=== PATIENT | male | born 1940 | race Caucasian/White ===

== ENCOUNTER 2021-08-07 06:43 | Emergency (ER) | payer OTHER ==
[2021-08-07 07:43] LABS: HEMOGLOBIN 12.8 gm/dl (14.0-17.5); RED BLOOD COUNT 4.49 M/UL (4.20-5.50); WHITE BLOOD COUNT 6.4 K/UL (4.5-11.0)
[2021-08-07 08:08] LABS: BUN/CREATININE RATIO 12 (0-10)
[2021-08-07] MEDS ORDERED: COLACE 100MG C100 MG PO (13:20)
== END 2021-08-07 13:59 | disposition home or self-care (01) ==
LOC: ER1 06:43
PROVIDERS: Physician Assistant
DX: K56.41 Fecal impaction (principal); N28.1 Cyst of kidney, acquired; R91.1 Solitary pulmonary nodule; R31.9 Hematuria, unspecified; I10 Essential (primary) hypertension; Z86.73 Personal history of transient ischemic attack (TIA), and cerebral infarction without residual deficits; Z88.6 Allergy status to analgesic agent
CPT/HCPCS: 80053; 81001; 82550; 82553; 83605; 83690; 83874; 84484; 85025; 93005; 96374; 99284; J2405; J7030; Q9967

== ENCOUNTER 2022-02-13 07:05 | Emergency (ER) | payer OTHER ==
[~2022-02-13 07:05] MED LIST: COLACE 100MG C100 MG PO
[2022-02-13 07:48] LABS: HEMOGLOBIN 13.8 gm/dl (14.0-17.5); RED BLOOD COUNT 4.33 M/UL (4.20-5.50); WHITE BLOOD COUNT 6.3 K/UL (4.5-11.0)
[2022-02-13 08:21] LABS: BUN/CREATININE RATIO 26 (0-10)
[2022-02-13] MEDS ORDERED: PROVENTIL HFA6.7 GM INH (10:26)
[2022-02-13] MEDS ORDERED: PREDNISONE 20 M20 MG PO (10:26)
== END 2022-02-13 10:58 | disposition home or self-care (01) ==
LOC: ER1 07:05
PROVIDERS: Emergency Medicine
DX: J40 Bronchitis, not specified as acute or chronic (principal); B34.9 Viral infection, unspecified; I48.91 Unspecified atrial fibrillation; I10 Essential (primary) hypertension
CPT/HCPCS: 71045; 80053; 82550; 82553; 83690; 84484; 85025; 93005; 96374; 99285; J2930

== ENCOUNTER 2022-02-19 04:46 | Inpatient (IN) | payer OTHER ==
[~2022-02-19] VITALS: Ht 177.8 cm; Wt 96.7 kg
[~2022-02-19 04:46] MED LIST changes: +PREDNISONE 20 M20 MG PO; +PROVENTIL HFA6.7 GM INH
[2022-02-19 05:44] LABS: HEMOGLOBIN 14.7 gm/dl (14.0-17.5); RED BLOOD COUNT 4.5 M/UL (4.20-5.50); WHITE BLOOD COUNT 18.3 K/UL (4.5-11.0)
[2022-02-19 06:12] LABS: BUN/CREATININE RATIO 34 (0-10)
[2022-02-19] MEDS ORDERED: KLONOPIN0.5 MG PO (17:15)
[2022-02-19] MEDS ORDERED: PROZAC20 MG PO (17:16)
[2022-02-19] MEDS ORDERED: FUROSEMIDE20 MG PO (17:16)
[2022-02-19] MEDS ORDERED: PROVENTIL HFA6.7 GM INH (17:16)
[2022-02-19] MEDS ORDERED: LOSARTAN POTAS100 MG PO (17:17)
[2022-02-19] MEDS ORDERED: AMIODARONE HCL200 MG PO (17:18)
[2022-02-19] MEDS ORDERED: TRIAMTERENE-HC1 EAC1 PO (17:18)
[2022-02-19] MEDS ORDERED: METOPROLOL TART25 MG PO (17:19)
[2022-02-19] MEDS ORDERED: COLACE 100MG C100 MG PO (19:44)
[2022-02-19] MEDS ORDERED: ASPIRIN EC325 MG PO (19:47)
[2022-02-20 02:34] LABS: HEMOGLOBIN 13.5 gm/dl (14.0-17.5); RED BLOOD COUNT 4.1 M/UL (4.20-5.50)
[2022-02-20 03:12] LABS: BUN/CREATININE RATIO 46 (0-10)
[2022-02-20 03:14] LABS: WHITE BLOOD COUNT 11.7 K/UL (4.5-11.0)
[2022-02-21 03:33] LABS: HEMOGLOBIN 13.2 gm/dl (14.0-17.5); RED BLOOD COUNT 4.08 M/UL (4.20-5.50); WHITE BLOOD COUNT 14.4 K/UL (4.5-11.0)
[2022-02-21 04:01] LABS: BUN/CREATININE RATIO 57 (0-10)
[2022-02-22 02:41] LABS: HEMOGLOBIN 13.6 gm/dl (14.0-17.5); RED BLOOD COUNT 4.19 M/UL (4.20-5.50); WHITE BLOOD COUNT 15.3 K/UL (4.5-11.0)
[2022-02-22 02:59] LABS: BUN/CREATININE RATIO 53 (0-10)
[2022-02-23 01:38] LABS: HEMOGLOBIN 13.3 gm/dl (14.0-17.5); RED BLOOD COUNT 4.14 M/UL (4.20-5.50); WHITE BLOOD COUNT 15.5 K/UL (4.5-11.0)
[2022-02-23 01:57] LABS: BUN/CREATININE RATIO 56 (0-10)
[2022-02-24 03:52] LABS: HEMOGLOBIN 14.1 gm/dl (14.0-17.5); RED BLOOD COUNT 4.37 M/UL (4.20-5.50); WHITE BLOOD COUNT 18.6 K/UL (4.5-11.0)
[2022-02-24 04:10] LABS: BUN/CREATININE RATIO 63 (0-10)
[2022-02-25 03:13] LABS: HEMOGLOBIN 14.2 gm/dl (14.0-17.5); RED BLOOD COUNT 4.39 M/UL (4.20-5.50); WHITE BLOOD COUNT 19.1 K/UL (4.5-11.0)
[2022-02-25 03:40] LABS: BUN/CREATININE RATIO 58 (0-10)
[2022-02-26 02:11] LABS: HEMOGLOBIN 14.6 gm/dl (14.0-17.5); RED BLOOD COUNT 4.46 M/UL (4.20-5.50); WHITE BLOOD COUNT 15.2 K/UL (4.5-11.0)
[2022-02-26 04:14] LABS: BUN/CREATININE RATIO 55 (0-10)
[2022-02-27 11:03] LABS: HEMOGLOBIN 14.9 gm/dl (14.0-17.5); RED BLOOD COUNT 4.58 M/UL (4.20-5.50); WHITE BLOOD COUNT 17.4 K/UL (4.5-11.0)
[2022-02-27 11:39] LABS: BUN/CREATININE RATIO 51 (0-10)
[2022-02-28 02:13] LABS: HEMOGLOBIN 14.4 gm/dl (14.0-17.5); RED BLOOD COUNT 4.44 M/UL (4.20-5.50); WHITE BLOOD COUNT 16.9 K/UL (4.5-11.0)
[2022-02-28 04:13] LABS: BUN/CREATININE RATIO 50 (0-10)
[2022-03-01 02:22] LABS: HEMOGLOBIN 14.2 gm/dl (14.0-17.5); RED BLOOD COUNT 4.41 M/UL (4.20-5.50); WHITE BLOOD COUNT 16.3 K/UL (4.5-11.0)
[2022-03-01 03:21] LABS: BUN/CREATININE RATIO 43 (0-10)
[2022-03-02 01:47] LABS: RED BLOOD COUNT 4.27 M/UL (4.20-5.50); WHITE BLOOD COUNT 12.7 K/UL (4.5-11.0)
[2022-03-02 02:39] LABS: BUN/CREATININE RATIO 50 (0-10)
[2022-03-03 02:55] LABS: BUN/CREATININE RATIO 45 (0-10)
[2022-03-04 02:51] LABS: HEMOGLOBIN 14.5 gm/dl (14.0-17.5); RED BLOOD COUNT 4.51 M/UL (4.20-5.50); WHITE BLOOD COUNT 13.7 K/UL (4.5-11.0)
[2022-03-04 03:27] LABS: BUN/CREATININE RATIO 36 (0-10)
[2022-03-05 04:38] LABS: HEMOGLOBIN 14.1 gm/dl (14.0-17.5); RED BLOOD COUNT 4.37 M/UL (4.20-5.50); WHITE BLOOD COUNT 13.6 K/UL (4.5-11.0)
[2022-03-05 05:09] LABS: BUN/CREATININE RATIO 40 (0-10)
[2022-03-06 02:56] LABS: HEMOGLOBIN 13.2 gm/dl (14.0-17.5); RED BLOOD COUNT 4.11 M/UL (4.20-5.50); WHITE BLOOD COUNT 11.8 K/UL (4.5-11.0)
[2022-03-06 03:40] LABS: BUN/CREATININE RATIO 47 (0-10)
[2022-03-07 02:25] LABS: HEMOGLOBIN 13.2 gm/dl (14.0-17.5); RED BLOOD COUNT 4.1 M/UL (4.20-5.50); WHITE BLOOD COUNT 10.2 K/UL (4.5-11.0)
[2022-03-07 02:35] LABS: BUN/CREATININE RATIO 42 (0-10)
[2022-03-09 02:31] LABS: HEMOGLOBIN 14.4 gm/dl (14.0-17.5); RED BLOOD COUNT 4.45 M/UL (4.20-5.50); WHITE BLOOD COUNT 11.3 K/UL (4.5-11.0)
[2022-03-09 03:05] LABS: BUN/CREATININE RATIO 45 (0-10)
[2022-03-10 03:54] LABS: HEMOGLOBIN 13.6 gm/dl (14.0-17.5); RED BLOOD COUNT 4.23 M/UL (4.20-5.50); WHITE BLOOD COUNT 11.6 K/UL (4.5-11.0)
[2022-03-10 04:14] LABS: BUN/CREATININE RATIO 61 (0-10)
--- NOTE | 2022-03-10 07:56 | NUR ---
PATIENT HAS JEFFERSON CATHETER. CATHETER CARE PROVIDED. INSERTED ON 03/09/2022.
[2022-03-11 04:56] LABS: RED BLOOD COUNT 4.06 M/UL (4.20-5.50); WHITE BLOOD COUNT 9.4 K/UL (4.5-11.0)
[2022-03-11 05:19] LABS: BUN/CREATININE RATIO 59 (0-10)
[2022-03-12 06:42] LABS: HEMOGLOBIN 13.9 gm/dl (14.0-17.5); RED BLOOD COUNT 4.32 M/UL (4.20-5.50); WHITE BLOOD COUNT 7.1 K/UL (4.5-11.0)
[2022-03-12 07:00] LABS: BUN/CREATININE RATIO 73 (0-10)
[2022-03-13 05:09] LABS: HEMOGLOBIN 14.2 gm/dl (14.0-17.5); RED BLOOD COUNT 4.31 M/UL (4.20-5.50)
[2022-03-13 05:14] LABS: WHITE BLOOD COUNT 11.8 K/UL (4.5-11.0)
[2022-03-13 05:38] LABS: BUN/CREATININE RATIO 53 (0-10)
[2022-03-14 05:03] LABS: HEMOGLOBIN 14.1 gm/dl (14.0-17.5); RED BLOOD COUNT 4.38 M/UL (4.20-5.50); WHITE BLOOD COUNT 11.6 K/UL (4.5-11.0)
[2022-03-15 05:26] LABS: HEMOGLOBIN 14.1 gm/dl (14.0-17.5); RED BLOOD COUNT 4.34 M/UL (4.20-5.50); WHITE BLOOD COUNT 12.6 K/UL (4.5-11.0)
[2022-03-15 06:24] LABS: BUN/CREATININE RATIO 68 (0-10)
[2022-03-16 05:35] LABS: BUN/CREATININE RATIO 78 (0-10)
[2022-03-16 05:36] LABS: HEMOGLOBIN 13.9 gm/dl (14.0-17.5); RED BLOOD COUNT 4.28 M/UL (4.20-5.50); WHITE BLOOD COUNT 12.1 K/UL (4.5-11.0)
[2022-03-17 05:36] LABS: HEMOGLOBIN 12.5 gm/dl (14.0-17.5)
[2022-03-17 05:40] LABS: BUN/CREATININE RATIO 84 (0-10)
[2022-03-17 05:54] LABS: RED BLOOD COUNT 3.81 M/UL (4.20-5.50)
[2022-03-18 05:21] LABS: HEMOGLOBIN 13.2 gm/dl (14.0-17.5); RED BLOOD COUNT 3.96 M/UL (4.20-5.50); WHITE BLOOD COUNT 17.3 K/UL (4.5-11.0)
[2022-03-18 05:49] LABS: BUN/CREATININE RATIO 90 (0-10)
[2022-03-19 05:34] LABS: HEMOGLOBIN 12.7 gm/dl (14.0-17.5); RED BLOOD COUNT 3.84 M/UL (4.20-5.50); WHITE BLOOD COUNT 15.8 K/UL (4.5-11.0)
[2022-03-19 06:11] LABS: BUN/CREATININE RATIO 80 (0-10)
== END 2022-03-20 14:34 | disposition expired | DRG 870 ==
LOC: ER1 04:46 → PROG CARE 06:30 → CCU 06:30 → CDU 06:30 → PROG CARE 11:15 → CCU 03-09 10:28
PROVIDERS: Family Medicine; Internal Medicine; Internal Medicine Infectious Disease; Internal Medicine Pulmonary Disease; ADMIT Internal Medicine
PROC: 3E03329 Introduction of Other Anti-infective into Peripheral Vein, Percutaneous Approach (ICD-10-PCS; principal; 2022-02-19)
PROC: 3E043XZ Introduction of Vasopressor into Central Vein, Percutaneous Approach (ICD-10-PCS; 2022-02-19)
PROC: 5A0935A Assistance with Respiratory Ventilation, Less than 24 Consecutive Hours, High Flow/Velocity Cannula (ICD-10-PCS; 2022-02-19)
PROC: 5A09457 Assistance with Respiratory Ventilation, 24-96 Consecutive Hours, Continuous Positive Airway Pressure (ICD-10-PCS; 2022-02-19)
PROC: B24BZZZ Ultrasonography of Heart with Aorta (ICD-10-PCS; 2022-02-20)
PROC: 5A0955A Assistance with Respiratory Ventilation, Greater than 96 Consecutive Hours, High Flow/Velocity Cannula (ICD-10-PCS; 2022-02-20)
PROC: 5A09457 Assistance with Respiratory Ventilation, 24-96 Consecutive Hours, Continuous Positive Airway Pressure (ICD-10-PCS; 2022-03-06)
PROC: 5A09357 Assistance with Respiratory Ventilation, Less than 24 Consecutive Hours, Continuous Positive Airway Pressure (ICD-10-PCS; 2022-03-08)
PROC: 5A09357 Assistance with Respiratory Ventilation, Less than 24 Consecutive Hours, Continuous Positive Airway Pressure (ICD-10-PCS; 2022-03-08)
PROC: 5A0935A Assistance with Respiratory Ventilation, Less than 24 Consecutive Hours, High Flow/Velocity Cannula (ICD-10-PCS; 2022-03-09)
PROC: 5A09357 Assistance with Respiratory Ventilation, Less than 24 Consecutive Hours, Continuous Positive Airway Pressure (ICD-10-PCS; 2022-03-10)
PROC: 5A0935A Assistance with Respiratory Ventilation, Less than 24 Consecutive Hours, High Flow/Velocity Cannula (ICD-10-PCS; 2022-03-10)
PROC: 5A09357 Assistance with Respiratory Ventilation, Less than 24 Consecutive Hours, Continuous Positive Airway Pressure (ICD-10-PCS; 2022-03-10)
PROC: 5A0935A Assistance with Respiratory Ventilation, Less than 24 Consecutive Hours, High Flow/Velocity Cannula (ICD-10-PCS; 2022-03-10)
PROC: 5A09357 Assistance with Respiratory Ventilation, Less than 24 Consecutive Hours, Continuous Positive Airway Pressure (ICD-10-PCS; 2022-03-11)
PROC: 5A0935A Assistance with Respiratory Ventilation, Less than 24 Consecutive Hours, High Flow/Velocity Cannula (ICD-10-PCS; 2022-03-11)
PROC: 5A09357 Assistance with Respiratory Ventilation, Less than 24 Consecutive Hours, Continuous Positive Airway Pressure (ICD-10-PCS; 2022-03-11)
PROC: 5A0935A Assistance with Respiratory Ventilation, Less than 24 Consecutive Hours, High Flow/Velocity Cannula (ICD-10-PCS; 2022-03-11)
PROC: 5A1955Z Respiratory Ventilation, Greater than 96 Consecutive Hours (ICD-10-PCS; 2022-03-12)
PROC: 02HV33Z Insertion of Infusion Device into Superior Vena Cava, Percutaneous Approach (ICD-10-PCS; 2022-03-12)
PROC: B548ZZA Ultrasonography of Superior Vena Cava, Guidance (ICD-10-PCS; 2022-03-12)
PROC: 0BH17EZ Insertion of Endotracheal Airway into Trachea, Via Natural or Artificial Opening (ICD-10-PCS; 2022-03-12)
DX: A41.89 Other specified sepsis (principal); U07.1 COVID-19; J80 Acute respiratory distress syndrome; Z66 Do not resuscitate; J12.82 Pneumonia due to coronavirus disease 2019; J69.0 Pneumonitis due to inhalation of food and vomit; B37.1 Pulmonary candidiasis; J15.9 Unspecified bacterial pneumonia; R65.21 Severe sepsis with septic shock; I50.33 Acute on chronic diastolic (congestive) heart failure; G93.41 Metabolic encephalopathy; I46.2 Cardiac arrest due to underlying cardiac condition; R57.0 Cardiogenic shock; E66.2 Morbid (severe) obesity with alveolar hypoventilation; E87.2 Acidosis; I47.1 Supraventricular tachycardia; I45.2 Bifascicular block; G93.1 Anoxic brain damage, not elsewhere classified; I24.9 Acute ischemic heart disease, unspecified; N17.9 Acute kidney failure, unspecified; I49.3 Ventricular premature depolarization; L89.322 Pressure ulcer of left buttock, stage 2; L89.152 Pressure ulcer of sacral region, stage 2; K59.00 Constipation, unspecified; E87.5 Hyperkalemia; D69.6 Thrombocytopenia, unspecified; I11.0 Hypertensive heart disease with heart failure; E78.5 Hyperlipidemia, unspecified; I37.1 Nonrheumatic pulmonary valve insufficiency; D64.9 Anemia, unspecified; I25.10 Atherosclerotic heart disease of native coronary artery without angina pectoris; I48.91 Unspecified atrial fibrillation; I27.20 Pulmonary hypertension, unspecified; H91.93 Unspecified hearing loss, bilateral; Z95.1 Presence of aortocoronary bypass graft; Z98.890 Other specified postprocedural states; Z88.8 Allergy status to other drugs, medicaments and biological substances; Z79.01 Long term (current) use of anticoagulants; I25.2 Old myocardial infarction; Z95.2 Presence of prosthetic heart valve; R31.0 Gross hematuria; Z68.30 Body mass index [BMI] 30.0-30.9, adult
CPT/HCPCS: ECHO; 0240U; 31500; 36415; 36600; 71045; 80048; 80053; 80202; 81001; 82550; 82553; 82803; 82962; 83036; 83605; 83615; 83735; 83880; 84100; 84484; 85025; 85027; 85379; 85384; 86140; 87040; 87070; 87081; 87205; 93005; 93306; 94002; 94003; 94640; 94660; 94760; 94762; 96372; 96374; 96375; 97110; 97110-GP-CQ; 97116-GP-CQ; 97162; 97166; 97530; 97530-GP-CQ; 99285; A6212; C9113; J0248; J0456; J0692; J0696; J1100; J1200; J1205; J1650; J1940; J2060; J2185; J2248; J2250; J2270; J2370; J2543; J2704; J2765; J3370; J7030; J7040; J7070; Q0249; Q9967